=== PATIENT | male | born 1945 | race Caucasian/White ===

== ENCOUNTER → 2024-12-18 09:52 | Outpatient (CLI) | payer MEDICARE, SELFPAY ==
--- NOTE | 2024-12-18 09:53 | DI.MRI.S_ITS ---
PROCEDURE: MR KNEE RT WO CON INDICATIONS: Old tibial plateau fx and meniscus injury medial TECHNIQUE: Noncontrast sagittal PD fast spin echo and T2 fast spin echo with fat saturation, sagittal 3-D FLASH with fat saturation; coronal T1 spin echo and PD fast spin echo with fat saturation, and axial PD fast spin echo with fat saturation through the knee. COMPARISON: [facility] ([facility]), CR, XR KNEE RT 3V, 12/09/2024, 9:06. FINDINGS: Image quality: Excellent. Menisci: Medial meniscus multidirectional degenerative tear with horizontal cleavage tear of the meniscal body to posterior horn, vertical tear of the posterior horn and severe attenuation of the posterior horn root. Severe intrasubstance degeneration of the posterior root of the medial meniscus. The meniscus is moderately extruded. Lateral meniscal body to posterior horn attenuation with multifocal free edge tearing. Ligaments: Chronic tear of the anterior cruciate ligament with severe degeneration of the torn fibers. Chronic remodeling and scarring of the proximal substance of the PCL with partial-thickness chronic tearing. Chronic remodeling and scarring of the medial collateral and fibular collateral ligaments without acute tear. Moderate insertional tendinosis of the popliteus tendon. Otherwise the posterolateral supporting structures are intact. Extensor Mechanism: Quadriceps tendon is intact. Moderate tendinosis of the proximal patellar tendon. The patellar retinacula are intact. Osseous Structures: Subchondral insufficiency fracture of the posterior lateral tibial plateau without impaction or subsidence. No suspicious marrow replacing process. Slight joint effusion. Synovitis and debris in the popliteal hiatus. Hoffa's fat pad is unremarkable. Articular Cartilage: Patellofemoral compartment: Deep articular cartilage thinning of the lateral patellar facet, lateral trochlea, and central trochlea with interspersed intermediate thickness fraying. Medial compartment: Deep to full-thickness articular cartilage thinning and fraying of the central to a posterior condylar articular cartilage. Intermediate thinning of the central tibial plateau articular cartilage. Lateral compartment: Full-thickness articular cartilage loss of the central to posterior tibial plateau and central to posterior condylar articular cartilage. Other: Myofascial edema of the popliteus with fluid tracking along the mild tendinous junction concerning for partial tear of the tendon. Mild insertional tendinosis of semimembranosus. No tear of semimembranosus. No Nelson's cyst. Normal neurovascular signal. Subcutaneous soft tissues appear normal. IMPRESSION: 1. Subacute posterior lateral tibial plateau subchondral insufficiency fracture due to broad articular cartilage loss of the lateral compartment. 2. Medial meniscus multidirectional degenerative tear with severe degeneration of the posterior root. 3. Lateral meniscal body to posterior horn multifocal free edge tears. 4. Chronic complete ACL tear. 5. Scarring and remodeling of the proximal PCL. 6. Multifocal tricompartmental severe chondromalacia with areas of deep to full- thickness articular cartilage loss in each compartment. Dictated by: Bird Kaufman M.D. on 12/20/2024 at 9:23 Approved by: Bird Kaufman M.D. on 12/20/2024 at 10:05
== END ==
PROVIDERS: PCP Physician Assistant Medical; Referring Provider Family Medicine; Visit Provider Family Medicine
DX: M23.91 Unspecified internal derangement of right knee (principal); M84.461A Pathological fracture, right tibia, initial encounter for fracture; S83.281A Other tear of lateral meniscus, current injury, right knee, initial encounter; S83.241A Other tear of medial meniscus, current injury, right knee, initial encounter; S83.511A Sprain of anterior cruciate ligament of right knee, initial encounter; M94.261 Chondromalacia, right knee
CPT/HCPCS: 73721